=== PATIENT | female | born 1950 | race Two or more races ===

== ENCOUNTER 2022-08-11 12:20 | Inpatient (IN) | payer OTHER, MEDICAID ==
[~2022-08-11] VITALS: Ht 160 cm; Wt 66.7 kg
[2022-08-11] MEDS ORDERED: amLODIPine BESYLATE 5 MG TAB PO ONE (12:45)
[2022-08-11 13:11] LABS: Basophils # (auto) 0 10 ^3/uL (0-0.2); Basophils % (auto) 0.2 % (0.0-2.0); Eosinophils # (auto) 0.2 10 ^3/uL (0-0.8); Eosinophils % (auto) 2.6 % (0.0-7.0); Hematocrit 40.9 % (36.0-46.0); Hemoglobin 13.5 g/dL (12.2-16.2); Lymphocytes % (auto) 32.5 % (10.0-50.0); Mean Corpuscular Hemoglobin 27.4 pg (28.0-32.0); Mean Corpuscular Hgb Conc. 33.1 g/dL (32.0-36.0); Mean Corpuscular Volume 82.9 fL (80.0-100.0); Monocytes # (auto) 0.6 10 ^3/uL (0-1.3); Monocytes % (auto) 6.7 % (0.0-12.0); Neutrophils # (auto) 5.4 10 ^3/uL (1.6-8.6); Red Blood Cells 4.93 10^6/uL (4.0-5.20); Red Cell Distribution Width 15.3 % (11.8-14.3); White Blood Cell 9.3 10^3/uL (4.4-10.8)
[2022-08-11 13:36] LABS: Albumin 3.5 g/dL (3.4-5.0); BUN/Creatinine Ratio 19.7; Bilirubin, Total 0.6 mg/dL (0.2-1.0); Calcium 9.2 mg/dL (8.5-10.1); Potassium 4.9 mmol/L (3.5-5.1); Total Protein 6.8 g/dL (6.4-8.2)
[2022-08-11] MEDS ORDERED: SODIUM CHLORIDE 0.9% 1,000 ML IV ONE (18:45)
[2022-08-12] MEDS ORDERED: hydrALAZINE HCL 20 MG/ML VL IV ONE (00:45)
[2022-08-12] MEDS ORDERED: ACETAMINOPHEN 325 MG TAB PO PRN (01:00)
[2022-08-12] MEDS ORDERED: MORPHINE SULFATE INJ 2 MG/ml SYRG IV PRN (01:00)
[2022-08-12] MEDS ORDERED: ONDANSETRON HCL 4 MG/2 ML VIAL IV PRN (01:00)
[2022-08-12] MEDS ORDERED: NITROGLYCERIN 0.4 MG SL TAB SL PRN (01:00)
[2022-08-12] MEDS ORDERED: ENALAPRILAT 1.25 MG/ML-1ML VIAL IV ONE (01:00)
[2022-08-12 01:55] LABS: Urine Bacteria MOD /hpf (None Seen); Urine Blood Negative /uL (Negative); Urine Specific Gravity 1.006 (1.001-1.035); Urine WBC 98 /hpf (0 - 5); Urine WBC Clumps PRESENT /hpf (None Seen)
[2022-08-12 02:45] LABS: Cholesterol 160 mg/dL (< 200); LDL Cholesterol 79 mg/dL (< 100); Triglycerides 213 mg/dL (< 150)
[2022-08-12 02:48] LABS: HDL Cholesterol 61 mg/dL (40-59)
[2022-08-12] MEDS: cloNIDine HCL 0.1 MG TAB PO PRN ×2 (03:03→18:43)
[2022-08-12] MEDS: LISINOPRIL 10 MG TAB PO SCH (10:36)
[2022-08-12] MEDS: ATORVASTATIN 20 MG TAB PO SCH (10:36)
[2022-08-12] MEDS: PANTOPRAZOLE 40 MG TAB PO SCH (10:37)
[2022-08-12] MEDS: cefTRIAXone 1GM/50ML D5W 50 ML IV SCH (10:37)
[2022-08-12] MEDS: hydrALAZINE HCL 25 MG TAB PO SCH ×2 (10:37→23:25)
[2022-08-12] MEDS: ENOXAPARIN SOD 40 MG/0.4 ML SYRINGE SC SCH (10:51)
[2022-08-12] MEDS ORDERED: DEXTROSE (50%) 50ML SYRG IV ONE (16:45)
[2022-08-12] MEDS ORDERED: InsuLIN REG 1unit/0.01ml Soln (100units/ml) SC ONE (17:00)
[2022-08-12] MEDS ORDERED: ACCU-CHEK COMFORT CURVE STRIP VI ONE (17:00)
[2022-08-12] MEDS: LORazepam 0.5 MG TAB PO PRN (18:44)
[2022-08-13 06:25] LABS: Hematocrit 32.8 % (36.0-46.0); Hemoglobin 10.7 g/dL (12.2-16.2); Mean Corpuscular Hemoglobin 28.5 pg (28.0-32.0); Mean Corpuscular Hgb Conc. 32.5 g/dL (32.0-36.0); Mean Corpuscular Volume 87.7 fL (80.0-100.0); Red Blood Cells 3.74 10^6/uL (4.0-5.20); Red Cell Distribution Width 14.8 % (11.8-14.3); White Blood Cell 9.8 10^3/uL (4.4-10.8)
[2022-08-13 06:49] LABS: BUN/Creatinine Ratio 11.6; Calcium 9.7 mg/dL (8.5-10.1); Potassium 3.7 mmol/L (3.5-5.1)
[2022-08-13 06:50] LABS: Basophils % (manual) 0 (0.0-2.0); Blast Cells 0; Metamyelocytes % 0; Myelocytes % 0; Promyelocytes % 0; Reactive Lymphocytes 0
[2022-08-13 09:00] VITALS: BP 207/72
[2022-08-13 09:16] LABS: Band Neutrophils % (manual) 1; Eosinophils % (manual) 18 (0-7); Lymphocytes % (manual) 39 (10.0-50.0); Monocytes % (manual) 10 (0-12)
[2022-08-13] MEDS: cefTRIAXone 1GM/50ML D5W 50 ML IV SCH (09:35)
[2022-08-13] MEDS: cloNIDine HCL 0.1 MG TAB PO PRN ×2 (09:36→17:23)
[2022-08-13] MEDS: ENOXAPARIN SOD 40 MG/0.4 ML SYRINGE SC SCH (09:36)
[2022-08-13] MEDS: hydrALAZINE HCL 25 MG TAB PO SCH ×2 (09:36→21:49)
[2022-08-13] MEDS: LISINOPRIL 10 MG TAB PO SCH (09:36)
[2022-08-13] MEDS: PANTOPRAZOLE 40 MG TAB PO SCH (09:37)
[2022-08-13 13:00] VITALS: BP 167/68
[2022-08-13 14:00] VITALS: BP 143/58
[2022-08-13 17:00] VITALS: BP 163/75
[2022-08-13] MEDS ORDERED: LISINOPRIL 20 MG TAB PO ONE (19:15)
[2022-08-13 20:00] VITALS: BP 165/82
[2022-08-13] MEDS: ATORVASTATIN 20 MG TAB PO SCH (21:49)
[2022-08-13] MEDS: LORazepam 0.5 MG TAB PO PRN (21:50)
[2022-08-13 22:00] VITALS: BP 219/84
[2022-08-14] VITALS (7 sets, daily range): BP systolic 165–207; BP diastolic 71–95
[2022-08-14] MEDS: cloNIDine HCL 0.1 MG TAB PO PRN (04:07)
[2022-08-14] MEDS: cefTRIAXone 1GM/50ML D5W 50 ML IV SCH (08:36)
[2022-08-14] MEDS: hydrALAZINE HCL 25 MG TAB PO SCH ×2 (11:21→20:31)
[2022-08-14] MEDS: ENOXAPARIN SOD 40 MG/0.4 ML SYRINGE SC SCH (11:22)
[2022-08-14] MEDS: LISINOPRIL 10 MG TAB PO SCH ×3 (11:22→23:10)
[2022-08-14] MEDS ORDERED: TRIAMTERENE/HCTZ 37.5/25 MG CAP/TAB PO ONE (12:45)
[2022-08-14] MEDS: hydrALAZINE HCL 20 MG/ML VL IV PRN ×2 (13:15→20:32)
[2022-08-14] MEDS: ATORVASTATIN 20 MG TAB PO SCH (23:10)
[2022-08-14] MEDS ORDERED: MELATONIN 5 MG TAB PO ONE (23:30)
[2022-08-15] VITALS (9 sets, daily range): BP systolic 162–246; BP diastolic 53–93
[2022-08-15] MEDS: hydrALAZINE HCL 20 MG/ML VL IV PRN ×5 (03:08→20:42)
[2022-08-15] MEDS: cefTRIAXone 1GM/50ML D5W 50 ML IV SCH (09:10)
[2022-08-15] MEDS: hydrALAZINE HCL 25 MG TAB PO SCH ×2 (09:20→22:20)
[2022-08-15] MEDS: LISINOPRIL 10 MG TAB PO SCH (09:21)
[2022-08-15] MEDS: TRIAMTERENE/HCTZ 37.5/25 MG CAP/TAB PO SCH (09:21)
[2022-08-15] MEDS: ENOXAPARIN SOD 40 MG/0.4 ML SYRINGE SC SCH (09:21)
[2022-08-15] MEDS ORDERED: LACTULOSE 20Gm/30ML SOLN PO ONE (15:30)
[2022-08-15 16:10] LABS: Basophils # (auto) 0.2 10 ^3/uL (0-0.2); Basophils % (auto) 2.1 % (0.0-2.0); Eosinophils # (auto) 1.5 10 ^3/uL (0-0.8); Eosinophils % (auto) 14.9 % (0.0-7.0); Hematocrit 37.7 % (36.0-46.0); Hemoglobin 12.2 g/dL (12.2-16.2); Lymphocytes # (auto) 1.7 10 ^3/uL (0.4-5.4); Mean Corpuscular Hemoglobin 28.6 pg (28.0-32.0); Mean Corpuscular Hgb Conc. 32.4 g/dL (32.0-36.0); Mean Corpuscular Volume 88.1 fL (80.0-100.0); Monocytes # (auto) 0.5 10 ^3/uL (0-1.3); Monocytes % (auto) 4.8 % (0.0-12.0); Neutrophils # (auto) 6.2 10 ^3/uL (1.6-8.6); Neutrophils % (auto) 61.2 % (37.0-80.0); Nucleated Red Blood Cells % 0.2 %; Red Blood Cells 4.28 10^6/uL (4.0-5.20); Red Cell Distribution Width 14.7 % (11.8-14.3); White Blood Cell 10.1 10^3/uL (4.4-10.8)
[2022-08-15 16:28] LABS: BUN/Creatinine Ratio 11.7; Calcium 10.5 mg/dL (8.5-10.1); Potassium 3.9 mmol/L (3.5-5.1)
[2022-08-15] MEDS ORDERED: amLODIPine BESYLATE 5 MG TAB PO ONE (16:45)
[2022-08-15] MEDS ORDERED: PROMETHAZINE HCL 25 MG/ML 1ML IV ONE (17:00)
[2022-08-15] MEDS ORDERED: cloNIDine HCL 0.1 MG TAB PO PRN (17:00)
[2022-08-15] MEDS: LACTULOSE 20Gm/30ML SOLN PO SCH (19:43)
[2022-08-15] MEDS ORDERED: MELATONIN 5 MG TAB PO ONE (22:00)
[2022-08-15] MEDS: ATORVASTATIN 20 MG TAB PO SCH (22:18)
[2022-08-15] MEDS: LISINOPRIL 20 MG TAB PO SCH (22:20)
[2022-08-16] VITALS (9 sets, daily range): BP systolic 107–246; BP diastolic 70–91
[2022-08-16] MEDS: LACTULOSE 20Gm/30ML SOLN PO SCH ×4 (01:41→18:00)
[2022-08-16 06:32] LABS: Basophils # (auto) 0.2 10 ^3/uL (0-0.2); Basophils % (auto) 2.1 % (0.0-2.0); Eosinophils # (auto) 1.2 10 ^3/uL (0-0.8); Hematocrit 34.7 % (36.0-46.0); Hemoglobin 11.7 g/dL (12.2-16.2); Lymphocytes # (auto) 2.4 10 ^3/uL (0.4-5.4); Lymphocytes % (auto) 25.6 % (10.0-50.0); Mean Corpuscular Hemoglobin 28.9 pg (28.0-32.0); Mean Corpuscular Hgb Conc. 33.6 g/dL (32.0-36.0); Mean Corpuscular Volume 86.1 fL (80.0-100.0); Monocytes # (auto) 0.8 10 ^3/uL (0-1.3); Neutrophils # (auto) 4.8 10 ^3/uL (1.6-8.6); Neutrophils % (auto) 51.3 % (37.0-80.0); Red Blood Cells 4.03 10^6/uL (4.0-5.20); Red Cell Distribution Width 14.6 % (11.8-14.3); White Blood Cell 9.5 10^3/uL (4.4-10.8)
[2022-08-16] MEDS: hydrALAZINE HCL 20 MG/ML VL IV PRN (06:39)
[2022-08-16 06:49] LABS: Potassium 3.7 mmol/L (3.5-5.1)
[2022-08-16 06:54] LABS: Albumin 2.6 g/dL (3.4-5.0); BUN/Creatinine Ratio 10.9; Calcium 10.4 mg/dL (8.5-10.1)
[2022-08-16 06:56] LABS: Bilirubin, Total 0.3 mg/dL (0.2-1.0); Total Protein 5.9 g/dL (6.4-8.2)
[2022-08-16] MEDS: cefTRIAXone 1GM/50ML D5W 50 ML IV SCH (09:39)
[2022-08-16] MEDS: ENOXAPARIN SOD 40 MG/0.4 ML SYRINGE SC SCH (09:45)
[2022-08-16] MEDS: LISINOPRIL 20 MG TAB PO SCH (09:46)
[2022-08-16] MEDS: hydrALAZINE HCL 25 MG TAB PO SCH ×2 (09:46→21:52)
[2022-08-16] MEDS: TRIAMTERENE/HCTZ 37.5/25 MG CAP/TAB PO SCH (09:47)
[2022-08-16] MEDS ORDERED: OMNIPAQUE ORAL SOLN 500ml 12mg/ml PO ONE (10:25)
[2022-08-16] MEDS ORDERED: levoFLOXacin 500MG 100 ML IV ONE (13:30)
[2022-08-16] MEDS ORDERED: ENOXAPARIN SOD 40 MG/0.4 ML SYRINGE SC ONE (13:30)
[2022-08-16 15:18] LABS: Urine Bacteria MANY /hpf (None Seen); Urine Blood 1+ /uL (Negative); Urine Mucus FEW (None Seen); Urine Specific Gravity 1.014 (1.001-1.035); Urine WBC 2128 /hpf (0 - 5); Urine WBC Clumps PRESENT /hpf (None Seen)
[2022-08-16 16:22] LABS: Protein, Urine 666.7 mg/dL (0.0-11.9)
[2022-08-16] MEDS: ATORVASTATIN 20 MG TAB PO SCH (21:52)
[2022-08-16] MEDS ORDERED: cloNIDine HCL 0.1 MG TAB PO SCH (22:00)
[2022-08-16] MEDS ORDERED: NITROGLYCERIN 50MG/250ML 250 ML IV SCH (23:00)
[2022-08-17] VITALS (13 sets, daily range): BP systolic 131–246; BP diastolic 53–91
[2022-08-17] MEDS: hydrALAZINE HCL 25 MG TAB PO SCH ×4 (00:06→18:35)
[2022-08-17] MEDS: cloNIDine HCL 0.1 MG TAB PO PRN (00:07)
[2022-08-17] MEDS: hydrALAZINE HCL 20 MG/ML VL IV PRN (01:24)
[2022-08-17] MEDS: cloNIDine HCL 0.1 MG TAB PO SCH ×4 (06:00→22:09)
[2022-08-17 07:12] LABS: Uric Acid 5.4 mg/dL (2.6-6.0)
[2022-08-17] MEDS: cefTRIAXone 1GM/50ML D5W 50 ML IV SCH (09:00)
[2022-08-17] MEDS ORDERED: levoFLOXacin 250MG 50 ML IV SCH (10:00)
[2022-08-17] MEDS ORDERED: levoFLOXacin 500MG 100 ML IV SCH (10:00)
[2022-08-17] MEDS: TRIAMTERENE/HCTZ 37.5/25 MG CAP/TAB PO SCH (10:23)
[2022-08-17] MEDS: ERGOCALCIFEROL 50,000 UNIT(1.25MG) CAP PO SCH (14:30)
[2022-08-17] MEDS ORDERED: ALLOPURINOL 100 MG TAB PO ONE (17:00)
[2022-08-17] MEDS ORDERED: ALLOPURINOL 100 MG PO ONE (18:00)
[2022-08-17] MEDS: ATORVASTATIN 20 MG TAB PO SCH (22:10)
[2022-08-18] VITALS (10 sets, daily range): BP systolic 124–246; BP diastolic 53–91
[2022-08-18] MEDS: cloNIDine HCL 0.1 MG TAB PO SCH ×3 (05:54→22:59)
[2022-08-18] MEDS: hydrALAZINE HCL 25 MG TAB PO SCH ×4 (05:55→17:31)
[2022-08-18 06:59] LABS: BUN/Creatinine Ratio 9.2; Calcium 9.8 mg/dL (8.5-10.1); Magnesium 2.1 mg/dL (1.6-2.6); Potassium 4.2 mmol/L (3.5-5.1)
[2022-08-18] MEDS ORDERED: ALLO100T PO (09:12)
[2022-08-18] MEDS ORDERED: ATEN100T PO (09:12)
[2022-08-18] MEDS ORDERED: HYDR50TA15 PO (09:12)
[2022-08-18] MEDS ORDERED: LEVO125T7 PO (09:12)
[2022-08-18] MEDS ORDERED: INSUINJ2 SC (09:12)
[2022-08-18] MEDS ORDERED: OMEP-260 PO (09:12)
[2022-08-18] MEDS ORDERED: LOSA25TA38 PO (09:12)
[2022-08-18] MEDS ORDERED: ATO40T PO (09:12)
[2022-08-18] MEDS: cefTRIAXone 1GM/50ML D5W 50 ML IV SCH (09:20)
[2022-08-18] MEDS: ALLOPURINOL 100MG TABLET PO SCH (10:00)
[2022-08-18] MEDS: TRIAMTERENE/HCTZ 37.5/25 MG CAP/TAB PO SCH (10:00)
[2022-08-18] MEDS ORDERED: ALLOPURINOL 100 MG TAB PO SCH (10:00)
[2022-08-18] MEDS: ATORVASTATIN 20 MG TAB PO SCH (22:57)
[2022-08-19] VITALS (7 sets, daily range): BP systolic 139–193; BP diastolic 53–87
[2022-08-19] MEDS: hydrALAZINE HCL 25 MG TAB PO SCH ×5 (00:32→23:54)
[2022-08-19] MEDS: hydrALAZINE HCL 20 MG/ML VL IV PRN (02:17)
[2022-08-19] MEDS: cloNIDine HCL 0.1 MG TAB PO SCH (06:00)
[2022-08-19] MEDS ORDERED: DEXTROSE (50%) 50ML SYRG IV PRN (08:15)
[2022-08-19] MEDS: ACCU-CHEK COMFORT CURVE STRIP VI SCH ×3 (08:40→22:04)
[2022-08-19] MEDS: InsuLIN REG 1unit/0.01ml Soln (100units/ml) SC SCH ×3 (08:44→22:03)
[2022-08-19] MEDS: TRIAMTERENE/HCTZ 37.5/25 MG CAP/TAB PO SCH (10:00)
[2022-08-19] MEDS ORDERED: ERTAPENEM SOD INJ 1 GM in SODIUM CHL 0.9% 50 ML IV SCH (10:00)
[2022-08-19] MEDS: ERTAPENEM SOD INJ 0.5 GM in SODIUM CHL 0.9% 50 ML IV SCH (10:20)
[2022-08-19] MEDS: ALLOPURINOL 100MG TABLET PO SCH (10:41)
[2022-08-19] MEDS ORDERED: NIFEdipine 10 MG CAP PO ONE (12:00)
[2022-08-19] MEDS ORDERED: NIFEdipine ER 30 MG TAB PO ONE (13:15)
[2022-08-19 14:30] LABS: Calcium 9.8 mg/dL (8.5-10.1); Potassium 3.7 mmol/L (3.5-5.1)
[2022-08-19] MEDS: ATORVASTATIN 20 MG TAB PO SCH (21:43)
[2022-08-20] MEDS ORDERED: TEMAZEPAM 15 MG CAP PO ONE (01:00)
[2022-08-20 05:00] VITALS: BP 157/62
[2022-08-20] MEDS: hydrALAZINE HCL 25 MG TAB PO SCH ×4 (05:40→23:30)
[2022-08-20 06:30] LABS: BUN/Creatinine Ratio 13.4; Calcium 10.5 mg/dL (8.5-10.1)
[2022-08-20] MEDS: InsuLIN REG 1unit/0.01ml Soln (100units/ml) SC SCH ×4 (06:56→21:18)
[2022-08-20] MEDS: ACCU-CHEK COMFORT CURVE STRIP VI SCH ×4 (06:56→21:15)
[2022-08-20 09:04] VITALS: BP 137/62
[2022-08-20] MEDS: ERTAPENEM SOD INJ 0.5 GM in SODIUM CHL 0.9% 50 ML IV SCH (09:36)
[2022-08-20] MEDS: NIFEdipine ER 30 MG TAB PO SCH (09:36)
[2022-08-20] MEDS: TRIAMTERENE/HCTZ 37.5/25 MG CAP/TAB PO SCH (09:36)
[2022-08-20 13:00] VITALS: BP 130/76
[2022-08-20] MEDS ORDERED: ENOXAPARIN SOD 30 MG/0.3 ML SYRINGE SC ONE (15:00)
[2022-08-20 17:14] VITALS: BP 129/65
[2022-08-20] MEDS: ONDANSETRON HCL 4 MG/2 ML VIAL IV PRN (18:03)
[2022-08-20] MEDS: PANTOPRAZOLE 40 MG TAB PO SCH (21:13)
[2022-08-20] MEDS: ATORVASTATIN 20 MG TAB PO SCH (21:13)
[2022-08-20] MEDS: cloNIDine HCL 0.1 MG TAB PO PRN (21:20)
[2022-08-20 22:00] VITALS: BP 168/66
[2022-08-21] MEDS: ONDANSETRON HCL 4 MG/2 ML VIAL IV PRN ×2 (04:22→11:28)
[2022-08-21 05:00] VITALS: BP 133/63
[2022-08-21] MEDS: hydrALAZINE HCL 25 MG TAB PO SCH ×4 (06:00→18:22)
[2022-08-21] MEDS: ACCU-CHEK COMFORT CURVE STRIP VI SCH ×4 (06:03→21:24)
[2022-08-21 06:07] LABS: Basophils # (auto) 0.2 10 ^3/uL (0-0.2); Basophils % (auto) 1.5 % (0.0-2.0); Eosinophils # (auto) 0.8 10 ^3/uL (0-0.8); Eosinophils % (auto) 7.7 % (0.0-7.0); Hematocrit 34.8 % (36.0-46.0); Hemoglobin 11.5 g/dL (12.2-16.2); Lymphocytes # (auto) 2.5 10 ^3/uL (0.4-5.4); Lymphocytes % (auto) 23.2 % (10.0-50.0); Mean Corpuscular Hemoglobin 28.7 pg (28.0-32.0); Mean Corpuscular Hgb Conc. 33.1 g/dL (32.0-36.0); Mean Corpuscular Volume 86.5 fL (80.0-100.0); Monocytes # (auto) 0.8 10 ^3/uL (0-1.3); Monocytes % (auto) 7.3 % (0.0-12.0); Neutrophils # (auto) 6.5 10 ^3/uL (1.6-8.6); Neutrophils % (auto) 60.3 % (37.0-80.0); Nucleated Red Blood Cells % 0.2 %; Red Blood Cells 4.02 10^6/uL (4.0-5.20); Red Cell Distribution Width 14.5 % (11.8-14.3); White Blood Cell 10.7 10^3/uL (4.4-10.8)
[2022-08-21] MEDS: InsuLIN REG 1unit/0.01ml Soln (100units/ml) SC SCH ×4 (06:07→21:44)
[2022-08-21 06:36] LABS: Calcium 10.4 mg/dL (8.5-10.1); Potassium 4.2 mmol/L (3.5-5.1)
[2022-08-21 06:38] LABS: BUN/Creatinine Ratio 11.8
[2022-08-21] MEDS: LACTULOSE 20Gm/30ML SOLN PO ONE ×2 (07:45→10:21)
[2022-08-21 09:00] VITALS: BP 117/48
[2022-08-21] MEDS: NIFEdipine ER 30 MG TAB PO SCH (10:00)
[2022-08-21] MEDS: TRIAMTERENE/HCTZ 37.5/25 MG CAP/TAB PO SCH (10:00)
[2022-08-21] MEDS: PANTOPRAZOLE 40 MG TAB PO SCH ×3 (10:00→21:23)
[2022-08-21] MEDS: ENOXAPARIN SOD 30 MG/0.3 ML SYRINGE SC SCH (10:20)
[2022-08-21] MEDS: ERTAPENEM SOD INJ 0.5 GM in SODIUM CHL 0.9% 50 ML IV SCH (11:28)
[2022-08-21 13:00] VITALS: BP 139/46
[2022-08-21 17:00] VITALS: BP 148/64
[2022-08-21] MEDS: hydrALAZINE HCL 20 MG/ML VL IV PRN (21:24)
[2022-08-21] MEDS: ATORVASTATIN 20 MG TAB PO SCH (21:24)
[2022-08-21 22:00] VITALS: BP 159/63
[2022-08-22] MEDS: hydrALAZINE HCL 25 MG TAB PO SCH ×5 (00:21→23:23)
[2022-08-22] MEDS ORDERED: MELATONIN 5 MG TAB PO ONE (00:30)
[2022-08-22 05:00] VITALS: BP 145/52
[2022-08-22] MEDS: ACCU-CHEK COMFORT CURVE STRIP VI SCH ×4 (05:36→21:40)
[2022-08-22] MEDS: InsuLIN REG 1unit/0.01ml Soln (100units/ml) SC SCH ×4 (06:28→21:40)
[2022-08-22 08:55] VITALS: BP 151/67
[2022-08-22] MEDS: ERTAPENEM SOD INJ 0.5 GM in SODIUM CHL 0.9% 50 ML IV SCH (10:54)
[2022-08-22] MEDS: NIFEdipine ER 30 MG TAB PO SCH (10:55)
[2022-08-22] MEDS: TRIAMTERENE/HCTZ 37.5/25 MG CAP/TAB PO SCH (10:55)
[2022-08-22] MEDS: ENOXAPARIN SOD 30 MG/0.3 ML SYRINGE SC SCH (10:56)
[2022-08-22] MEDS: PANTOPRAZOLE 40 MG TAB PO SCH ×2 (10:56→21:38)
[2022-08-22 13:00] VITALS: BP 157/58
[2022-08-22 14:07] LABS: Potassium 4.3 mmol/L (3.5-5.1)
[2022-08-22 14:08] LABS: BUN/Creatinine Ratio 10.6; Calcium 10.3 mg/dL (8.5-10.1)
[2022-08-22] MEDS ORDERED: POLYETHYLENE GLYCOL 17 GM PWDR PO ONE (15:45)
[2022-08-22] MEDS ORDERED: SENNA 8.6 MG TAB PO ONE (15:45)
[2022-08-22] MEDS ORDERED: POLYETHYLENE GLYCOL 17 GM PWDR PO PRN (15:45)
[2022-08-22] MEDS ORDERED: SENNA 8.6 MG TAB PO PRN (15:45)
[2022-08-22 17:00] VITALS: BP 154/61
[2022-08-22] MEDS: ATORVASTATIN 20 MG TAB PO SCH (21:37)
[2022-08-22] MEDS: SENNA 8.6 MG TAB PO SCH (21:39)
[2022-08-22] MEDS: cloNIDine HCL 0.1 MG TAB PO PRN (21:39)
[2022-08-22] MEDS: ONDANSETRON HCL 4 MG/2 ML VIAL IV PRN (21:45)
[2022-08-22 22:00] VITALS: BP 174/79
[2022-08-23 05:19] VITALS: BP 147/62
[2022-08-23] MEDS: hydrALAZINE HCL 25 MG TAB PO SCH ×4 (06:01→23:37)
[2022-08-23 06:27] LABS: BUN/Creatinine Ratio 11.4; Calcium 10.1 mg/dL (8.5-10.1); Potassium 4.1 mmol/L (3.5-5.1)
[2022-08-23] MEDS: InsuLIN REG 1unit/0.01ml Soln (100units/ml) SC SCH ×4 (06:27→22:39)
[2022-08-23] MEDS: ACCU-CHEK COMFORT CURVE STRIP VI SCH ×4 (06:28→22:00)
[2022-08-23 09:00] VITALS: BP 142/61
[2022-08-23] MEDS: ERTAPENEM SOD INJ 0.5 GM in SODIUM CHL 0.9% 50 ML IV SCH (09:45)
[2022-08-23] MEDS: PANTOPRAZOLE 40 MG TAB PO SCH ×2 (09:46→21:51)
[2022-08-23] MEDS: NIFEdipine ER 30 MG TAB PO SCH (09:46)
[2022-08-23] MEDS: ENOXAPARIN SOD 30 MG/0.3 ML SYRINGE SC SCH (09:46)
[2022-08-23] MEDS: POLYETHYLENE GLYCOL 17 GM PWDR PO SCH (09:46)
[2022-08-23] MEDS: ONDANSETRON HCL 4 MG/2 ML VIAL IV PRN ×2 (09:56→20:28)
[2022-08-23 13:00] VITALS: BP 154/67
[2022-08-23 16:35] VITALS: BP 154/76
[2022-08-23] MEDS: SENNA 8.6 MG TAB PO SCH (21:50)
[2022-08-23] MEDS: ATORVASTATIN 20 MG TAB PO SCH (21:51)
[2022-08-23] MEDS: cloNIDine HCL 0.1 MG TAB PO PRN (21:57)
[2022-08-23 23:09] VITALS: BP 165/79
[2022-08-24] MEDS: hydrALAZINE HCL 25 MG TAB PO SCH ×3 (05:48→17:51)
[2022-08-24] MEDS: InsuLIN REG 1unit/0.01ml Soln (100units/ml) SC SCH ×4 (06:07→21:29)
[2022-08-24] MEDS: ACCU-CHEK COMFORT CURVE STRIP VI SCH ×4 (06:07→21:21)
[2022-08-24 07:20] LABS: BUN/Creatinine Ratio 11.3; Calcium 9.9 mg/dL (8.5-10.1); Potassium 3.9 mmol/L (3.5-5.1)
[2022-08-24 09:00] VITALS: BP 137/61
[2022-08-24] MEDS: NIFEdipine ER 30 MG TAB PO SCH (10:08)
[2022-08-24] MEDS: POLYETHYLENE GLYCOL 17 GM PWDR PO SCH (10:08)
[2022-08-24] MEDS: PANTOPRAZOLE 40 MG TAB PO SCH ×2 (10:08→21:20)
[2022-08-24] MEDS: ENOXAPARIN SOD 30 MG/0.3 ML SYRINGE SC SCH (10:08)
[2022-08-24] MEDS: ERTAPENEM SOD INJ 0.5 GM in SODIUM CHL 0.9% 50 ML IV SCH (10:22)
[2022-08-24 13:00] VITALS: BP 142/62
[2022-08-24] MEDS: ERGOCALCIFEROL 50,000 UNIT(1.25MG) CAP PO SCH (14:46)
[2022-08-24 16:55] VITALS: BP 140/68
[2022-08-24] MEDS: ATORVASTATIN 20 MG TAB PO SCH (21:20)
[2022-08-24] MEDS: SENNA 8.6 MG TAB PO SCH (21:21)
[2022-08-24 22:00] VITALS: BP 153/68
[2022-08-25] MEDS: hydrALAZINE HCL 25 MG TAB PO SCH ×4 (00:02→18:05)
[2022-08-25 05:00] VITALS: BP 141/68
[2022-08-25] MEDS: ACCU-CHEK COMFORT CURVE STRIP VI SCH ×4 (06:27→21:56)
[2022-08-25] MEDS: InsuLIN REG 1unit/0.01ml Soln (100units/ml) SC SCH ×4 (06:28→22:00)
[2022-08-25 06:30] LABS: BUN/Creatinine Ratio 11.5; Calcium 10.2 mg/dL (8.5-10.1); Potassium 3.7 mmol/L (3.5-5.1)
[2022-08-25 08:35] VITALS: BP 140/68
[2022-08-25] MEDS: PANTOPRAZOLE 40 MG TAB PO SCH ×2 (10:36→21:45)
[2022-08-25] MEDS: ENOXAPARIN SOD 30 MG/0.3 ML SYRINGE SC SCH (10:36)
[2022-08-25] MEDS: POLYETHYLENE GLYCOL 17 GM PWDR PO SCH (10:37)
[2022-08-25] MEDS: NIFEdipine ER 30 MG TAB PO SCH (10:37)
[2022-08-25] MEDS: ERTAPENEM SOD INJ 0.5 GM in SODIUM CHL 0.9% 50 ML IV SCH (10:42)
[2022-08-25 12:46] VITALS: BP 145/82
[2022-08-25 16:27] VITALS: BP 156/79
[2022-08-25] MEDS: hydrALAZINE HCL 20 MG/ML VL IV PRN (16:39)
[2022-08-25 17:40] VITALS: BP 146/66
[2022-08-25] MEDS: ATORVASTATIN 20 MG TAB PO SCH (21:46)
[2022-08-25] MEDS: SENNA 8.6 MG TAB PO SCH (21:46)
[2022-08-25 23:54] VITALS: BP 146/75
[2022-08-26] VITALS (7 sets, daily range): BP systolic 135–165; BP diastolic 66–86
[2022-08-26] MEDS: hydrALAZINE HCL 25 MG TAB PO SCH ×4 (00:27→18:26)
[2022-08-26] MEDS: ACCU-CHEK COMFORT CURVE STRIP VI SCH ×4 (06:35→21:30)
[2022-08-26] MEDS: InsuLIN REG 1unit/0.01ml Soln (100units/ml) SC SCH ×4 (06:36→22:32)
[2022-08-26 06:56] LABS: Anion Gap 8 (5-15); Carbon Dioxide 25 mmol/L (21-32); Chloride 100 mmol/L (98-107); Sodium 133 mmol/L (136-145)
[2022-08-26 06:57] LABS: BUN/Creatinine Ratio 13.3; Blood Urea Nitrogen 34 mg/dL (7-18); Calcium 10.4 mg/dL (8.5-10.1); GFR African American 24 mL/min; GFR Non-African American 20 mL/min; Glucose 143 mg/dL (74-106); Potassium 4.4 mmol/L (3.5-5.1)
[2022-08-26] MEDS: PANTOPRAZOLE 40 MG TAB PO SCH ×2 (10:19→21:30)
[2022-08-26] MEDS: ERTAPENEM SOD INJ 0.5 GM in SODIUM CHL 0.9% 50 ML IV SCH (10:19)
[2022-08-26] MEDS: ENOXAPARIN SOD 30 MG/0.3 ML SYRINGE SC SCH (10:19)
[2022-08-26] MEDS: POLYETHYLENE GLYCOL 17 GM PWDR PO SCH (10:19)
[2022-08-26] MEDS: NIFEdipine ER 30 MG TAB PO SCH (10:20)
[2022-08-26] MEDS ORDERED: ERGO1CAP23 PO (11:27)
[2022-08-26] MEDS ORDERED: NIFE1TAB31 PO (11:27)
[2022-08-26] MEDS: hydrALAZINE HCL 20 MG/ML VL IV PRN (20:28)
[2022-08-26 20:36] LABS: Basophils # (auto) 0.1 10 ^3/uL (0-0.2); Basophils % (auto) 2.2 % (0.0-2.0); Eosinophils # (auto) 0.7 10 ^3/uL (0-0.8); Eosinophils % (auto) 10.3 % (0.0-7.0); Hematocrit 39.4 % (36.0-46.0); Hemoglobin 12.7 g/dL (12.2-16.2); Lymphocytes # (auto) 2.5 10 ^3/uL (0.4-5.4); Lymphocytes % (auto) 37.9 % (10.0-50.0); Mean Corpuscular Hemoglobin 27.9 pg (28.0-32.0); Mean Corpuscular Hgb Conc. 32.3 g/dL (32.0-36.0); Mean Corpuscular Volume 86.3 fL (80.0-100.0); Monocytes # (auto) 0.4 10 ^3/uL (0-1.3); Monocytes % (auto) 5.8 % (0.0-12.0); Neutrophils # (auto) 2.9 10 ^3/uL (1.6-8.6); Neutrophils % (auto) 43.8 % (37.0-80.0); Nucleated Red Blood Cells % 0.3 %; Red Blood Cells 4.57 10^6/uL (4.0-5.20); Red Cell Distribution Width 14.4 % (11.8-14.3); White Blood Cell 6.6 10^3/uL (4.4-10.8)
[2022-08-26] MEDS: ATORVASTATIN 20 MG TAB PO SCH (21:30)
[2022-08-26] MEDS: SENNA 8.6 MG TAB PO SCH (21:30)
[2022-08-27] MEDS: hydrALAZINE HCL 25 MG TAB PO SCH ×5 (00:15→23:59)
[2022-08-27] MEDS: cloNIDine HCL 0.1 MG TAB PO PRN ×2 (02:00→14:00)
[2022-08-27 05:00] VITALS: BP 147/88
[2022-08-27] MEDS: ACCU-CHEK COMFORT CURVE STRIP VI SCH ×4 (06:16→22:00)
[2022-08-27] MEDS: InsuLIN REG 1unit/0.01ml Soln (100units/ml) SC SCH ×4 (07:00→22:00)
[2022-08-27 07:04] LABS: Potassium 4.3 mmol/L (3.5-5.1)
[2022-08-27 07:15] LABS: BUN/Creatinine Ratio 11.6
[2022-08-27 09:00] VITALS: BP 158/65
[2022-08-27] MEDS: POLYETHYLENE GLYCOL 17 GM PWDR PO SCH (09:53)
[2022-08-27] MEDS: ENOXAPARIN SOD 30 MG/0.3 ML SYRINGE SC SCH (09:54)
[2022-08-27] MEDS: NIFEdipine ER 30 MG TAB PO SCH (09:54)
[2022-08-27] MEDS: PANTOPRAZOLE 40 MG TAB PO SCH ×2 (09:55→22:18)
[2022-08-27] MEDS: ERTAPENEM SOD INJ 0.5 GM in SODIUM CHL 0.9% 50 ML IV SCH (09:55)
[2022-08-27 13:00] VITALS: BP 168/80
[2022-08-27 17:00] VITALS: BP 131/66
[2022-08-27 22:00] VITALS: BP 120/64
[2022-08-27] MEDS: ATORVASTATIN 20 MG TAB PO SCH (22:18)
[2022-08-27] MEDS: SENNA 8.6 MG TAB PO SCH (22:18)
[2022-08-28 05:00] VITALS: BP 118/57
[2022-08-28] MEDS: hydrALAZINE HCL 25 MG TAB PO SCH ×4 (06:00→23:59)
[2022-08-28] MEDS: ACCU-CHEK COMFORT CURVE STRIP VI SCH ×4 (06:32→21:42)
[2022-08-28] MEDS: InsuLIN REG 1unit/0.01ml Soln (100units/ml) SC SCH ×4 (06:32→21:54)
[2022-08-28 07:06] LABS: BUN/Creatinine Ratio 12.2; Calcium 9.9 mg/dL (8.5-10.1); Potassium 4.3 mmol/L (3.5-5.1)
[2022-08-28 08:05] VITALS: BP 177/78
[2022-08-28] MEDS: ONDANSETRON HCL 4 MG/2 ML VIAL IV PRN ×2 (08:49→13:16)
[2022-08-28 09:00] VITALS: BP 177/78
[2022-08-28] MEDS: POLYETHYLENE GLYCOL 17 GM PWDR PO SCH (10:10)
[2022-08-28] MEDS: ENOXAPARIN SOD 30 MG/0.3 ML SYRINGE SC SCH (10:11)
[2022-08-28] MEDS: NIFEdipine ER 30 MG TAB PO SCH (10:11)
[2022-08-28] MEDS: PANTOPRAZOLE 40 MG TAB PO SCH ×2 (10:11→21:40)
[2022-08-28] MEDS: ERTAPENEM SOD INJ 0.5 GM in SODIUM CHL 0.9% 50 ML IV SCH (10:14)
[2022-08-28] MEDS ORDERED: FUROSEMIDE 20 MG/2 ML VIAL IV ONE (11:30)
[2022-08-28 13:00] VITALS: BP 178/75
[2022-08-28] MEDS: IPRATROPIUM BROM 0.5 MG/2.5ML INH SOL NEB SCH ×2 (13:27→19:06)
[2022-08-28] MEDS: ALBUTEROL SULF 2.5 MG/0.5ML(0.5%) NEB SOLN NEB SCH ×2 (13:27→19:06)
[2022-08-28] MEDS: ACETYLCYSTEINE 10 %(100MG/ML) SOL 4ML NEB SCH ×2 (13:28→19:06)
[2022-08-28 14:15] VITALS: BP 181/82
[2022-08-28] MEDS: ATORVASTATIN 20 MG TAB PO SCH (21:41)
[2022-08-28] MEDS: SENNA 8.6 MG TAB PO SCH (21:41)
[2022-08-28 22:00] VITALS: BP 144/60
[2022-08-29] VITALS (7 sets, daily range): BP systolic 134–151; BP diastolic 57–73
[2022-08-29] MEDS: IPRATROPIUM BROM 0.5 MG/2.5ML INH SOL NEB SCH ×4 (00:20→19:29)
[2022-08-29] MEDS: ALBUTEROL SULF 2.5 MG/0.5ML(0.5%) NEB SOLN NEB SCH ×4 (00:20→19:29)
[2022-08-29] MEDS: hydrALAZINE HCL 25 MG TAB PO SCH ×3 (06:35→18:31)
[2022-08-29] MEDS: ACCU-CHEK COMFORT CURVE STRIP VI SCH ×4 (06:35→22:00)
[2022-08-29] MEDS: InsuLIN REG 1unit/0.01ml Soln (100units/ml) SC SCH ×4 (06:35→22:00)
[2022-08-29 06:44] LABS: Hemoglobin 11.2 g/dL (12.2-16.2); Red Cell Distribution Width 14.4 % (11.8-14.3)
[2022-08-29 06:47] LABS: Mean Corpuscular Hemoglobin 27.9 pg (28.0-32.0); Mean Corpuscular Hgb Conc. 32.9 g/dL (32.0-36.0); Mean Corpuscular Volume 84.9 fL (80.0-100.0); White Blood Cell 6.4 10^3/uL (4.4-10.8)
[2022-08-29 07:04] LABS: Calcium 10.2 mg/dL (8.5-10.1); Potassium 4.3 mmol/L (3.5-5.1)
[2022-08-29 07:06] LABS: BUN/Creatinine Ratio 12.6; Band Neutrophils % (manual) 0; Basophils % (manual) 0 (0.0-2.0); Blast Cells 0; Metamyelocytes % 0; Myelocytes % 0; Promyelocytes % 0; Reactive Lymphocytes 0
[2022-08-29] MEDS: ACETYLCYSTEINE 10 %(100MG/ML) SOL 4ML NEB SCH ×3 (07:15→19:29)
[2022-08-29 08:38] LABS: Eosinophils % (manual) 16 (0-7); Lymphocytes % (manual) 40 (10.0-50.0); Monocytes % (manual) 8 (0-12)
[2022-08-29] MEDS ORDERED: DOCUSATE SOD 100 MG CAP PO PRN (10:00)
[2022-08-29] MEDS ORDERED: POLYETHYLENE GLYCOL 17 GM PWDR PO SCH (10:00)
[2022-08-29] MEDS: ERTAPENEM SOD INJ 0.5 GM in SODIUM CHL 0.9% 50 ML IV SCH (11:54)
[2022-08-29] MEDS: NIFEdipine ER 30 MG TAB PO SCH (12:03)
[2022-08-29] MEDS: PANTOPRAZOLE 40 MG TAB PO SCH ×2 (12:03→22:00)
[2022-08-29] MEDS: ENOXAPARIN SOD 30 MG/0.3 ML SYRINGE SC SCH (12:04)
[2022-08-29] MEDS: POLYETHYLENE GLYCOL 17 GM PWDR PO SCH ×2 (12:08→22:00)
[2022-08-29] MEDS: SENNA 8.6 MG TAB PO SCH (22:00)
[2022-08-30] MEDS: ALBUTEROL SULF 2.5 MG/0.5ML(0.5%) NEB SOLN NEB SCH ×4 (00:52→18:45)
[2022-08-30] MEDS: IPRATROPIUM BROM 0.5 MG/2.5ML INH SOL NEB SCH ×4 (00:52→18:45)
[2022-08-30] MEDS: ATORVASTATIN 20 MG TAB PO SCH ×2 (00:58→23:08)
[2022-08-30 05:00] VITALS: BP 133/64
[2022-08-30] MEDS: ACCU-CHEK COMFORT CURVE STRIP VI SCH ×4 (05:47→22:00)
[2022-08-30] MEDS: InsuLIN REG 1unit/0.01ml Soln (100units/ml) SC SCH ×4 (05:48→22:58)
[2022-08-30] MEDS: hydrALAZINE HCL 25 MG TAB PO SCH ×5 (05:56→23:10)
[2022-08-30 07:37] LABS: Potassium 4.1 mmol/L (3.5-5.1)
[2022-08-30 07:38] LABS: BUN/Creatinine Ratio 11.8
[2022-08-30 08:00] VITALS: BP 160/80
[2022-08-30] MEDS: ACETYLCYSTEINE 10 %(100MG/ML) SOL 4ML NEB SCH ×3 (08:19→18:45)
[2022-08-30 09:00] VITALS: BP 149/65
[2022-08-30] MEDS: POLYETHYLENE GLYCOL 17 GM PWDR PO SCH ×2 (10:00→22:00)
[2022-08-30] MEDS: PANTOPRAZOLE 40 MG TAB PO SCH ×2 (10:00→23:08)
[2022-08-30] MEDS: NIFEdipine ER 30 MG TAB PO SCH (11:36)
[2022-08-30] MEDS: ERTAPENEM SOD INJ 0.5 GM in SODIUM CHL 0.9% 50 ML IV SCH (11:40)
[2022-08-30] MEDS: ENOXAPARIN SOD 30 MG/0.3 ML SYRINGE SC SCH (11:45)
[2022-08-30 13:00] VITALS: BP 160/80
[2022-08-30 17:00] VITALS: BP 116/68
[2022-08-30] MEDS: SENNA 8.6 MG TAB PO SCH (22:00)
[2022-08-30 23:28] VITALS: BP 140/58
[2022-08-31] MEDS: IPRATROPIUM BROM 0.5 MG/2.5ML INH SOL NEB SCH ×2 (00:12→05:45)
[2022-08-31] MEDS: ALBUTEROL SULF 2.5 MG/0.5ML(0.5%) NEB SOLN NEB SCH ×2 (00:12→05:45)
[2022-08-31] MEDS: ACETYLCYSTEINE 10 %(100MG/ML) SOL 4ML NEB SCH (05:45)
[2022-08-31 05:57] VITALS: BP 122/56
[2022-08-31] MEDS: hydrALAZINE HCL 25 MG TAB PO SCH ×3 (06:00→13:50)
[2022-08-31] MEDS: InsuLIN REG 1unit/0.01ml Soln (100units/ml) SC SCH ×3 (06:17→18:09)
[2022-08-31] MEDS: ACCU-CHEK COMFORT CURVE STRIP VI SCH ×3 (06:17→18:43)
[2022-08-31 09:00] VITALS: BP 123/54
[2022-08-31 09:03] LABS: Anion Gap 8 (5-15); Blood Urea Nitrogen 29 mg/dL (7-18); Calcium 9.7 mg/dL (8.5-10.1); Carbon Dioxide 25 mmol/L (21-32); Chloride 95 mmol/L (98-107); Glucose 111 mg/dL (74-106); Potassium 3.6 mmol/L (3.5-5.1); Sodium 128 mmol/L (136-145)
[2022-08-31 09:06] LABS: BUN/Creatinine Ratio 11.6; GFR African American 24 mL/min; GFR Non-African American 20 mL/min
[2022-08-31] MEDS: PANTOPRAZOLE 40 MG TAB PO SCH (10:17)
[2022-08-31] MEDS: NIFEdipine ER 30 MG TAB PO SCH (10:21)
[2022-08-31] MEDS: ENOXAPARIN SOD 30 MG/0.3 ML SYRINGE SC SCH (10:22)
[2022-08-31] MEDS: ERTAPENEM SOD INJ 0.5 GM in SODIUM CHL 0.9% 50 ML IV SCH (10:28)
[2022-08-31] MEDS: POLYETHYLENE GLYCOL 17 GM PWDR PO SCH (10:43)
[2022-08-31 12:53] VITALS: BP 141/63
[2022-08-31 13:00] VITALS: BP 146/68
[2022-08-31] MEDS ORDERED: FUROSEMIDE 40 MG/4 ML VIAL IV ONE (13:00)
[2022-08-31] MEDS: ERGOCALCIFEROL 50,000 UNIT(1.25MG) CAP PO SCH (13:58)
[2022-08-31] MEDS ORDERED: IPRATROPIUM BROM 0.5 MG/2.5ML INH SOL NEB SCH (14:00)
[2022-08-31] MEDS ORDERED: ALBUTEROL SULF 2.5 MG/0.5ML(0.5%) NEB SOLN NEB SCH (14:00)
[2022-08-31 16:47] VITALS: BP 157/69
[2022-08-31] MEDS: hydrALAZINE HCL 20 MG/ML VL IV PRN (18:04)
== END 2022-08-31 20:45 | DRG 304 ==
LOC: EDBD 12:20 → ER 12:20 → TELE 08-12 01:03 → TELE-WESTW 08-13 09:05 → WEST WING 08-28 10:42
PROVIDERS: ADMIT Nurse Practitioner; ATTEND Internal Medicine
PROC: 05HB33Z Insertion of Infusion Device into Right Basilic Vein, Percutaneous Approach (ICD-10-PCS; principal; 2022-08-17)
PROC: B54MZZA Ultrasonography of Right Upper Extremity Veins, Guidance (ICD-10-PCS; 2022-08-17)
DX: I16.0 Hypertensive urgency (principal); J96.01 Acute respiratory failure with hypoxia; N17.0 Acute kidney failure with tubular necrosis; N39.0 Urinary tract infection, site not specified; N18.4 Chronic kidney disease, stage 4 (severe); I95.1 Orthostatic hypotension; E11.22 Type 2 diabetes mellitus with diabetic chronic kidney disease; D63.1 Anemia in chronic kidney disease; Z20.822 Contact with and (suspected) exposure to COVID-19; E03.9 Hypothyroidism, unspecified; E83.52 Hypercalcemia; K59.00 Constipation, unspecified; I12.9 Hypertensive chronic kidney disease with stage 1 through stage 4 chronic kidney disease, or unspecified chronic kidney disease; Z63.4 Disappearance and death of family member; Z82.49 Family history of ischemic heart disease and other diseases of the circulatory system; Z88.8 Allergy status to other drugs, medicaments and biological substances
CPT/HCPCS: 36415; 70450; 70551; 71045; 76775; 80048; 80053; 80061; 81001; 82088; 82306; 82533; 82550; 82570; 82962; 83036; 83735; 83880; 83970; 84100; 84156; 84244; 84300; 84443; 84484; 84550; 85007; 85025; 85027; 87086; 87088; 87186; 87426; 93005; 93306; 94640; 96361; 96374; 97110; 97116; 97163; G0378; J0696; J1335; J1815; J2405

== ENCOUNTER 2023-01-16 21:07 | Emergency (ER) | payer OTHER, MEDICAID ==
[~2023-01-16] VITALS: Ht 160 cm; Wt 70.0 kg
[~2023-01-16 21:07] MED LIST: ALLO100T PO; ATO40T PO; ERGO1CAP23 PO; INSUINJ2 SC; LEVO125T7 PO; NIFE1TAB31 PO; OMEP-260 PO
[2023-01-16 22:02] LABS: Basophils # (auto) 0.3 10 ^3/uL (0-0.2); Eosinophils # (auto) 1.1 10 ^3/uL (0-0.8); Eosinophils % (auto) 11.5 % (0.0-7.0); Hematocrit 34.1 % (36.0-46.0); Hemoglobin 11.5 g/dL (12.2-16.2); Lymphocytes # (auto) 1.7 10 ^3/uL (0.4-5.4); Lymphocytes % (auto) 16.8 % (10.0-50.0); Mean Corpuscular Hemoglobin 30.2 pg (28.0-32.0); Mean Corpuscular Hgb Conc. 33.7 g/dL (32.0-36.0); Mean Corpuscular Volume 89.8 fL (80.0-100.0); Monocytes # (auto) 0.4 10 ^3/uL (0-1.3); Monocytes % (auto) 4.1 % (0.0-12.0); Neutrophils # (auto) 6.4 10 ^3/uL (1.6-8.6); Neutrophils % (auto) 64.6 % (37.0-80.0); Nucleated Red Blood Cells % 0.1 %; Red Cell Distribution Width 14.4 % (11.8-14.3); White Blood Cell 9.8 10^3/uL (4.4-10.8)
[2023-01-16 22:20] LABS: Albumin 2.1 g/dL (3.4-5.0); Calcium 8.8 mg/dL (8.5-10.1); Magnesium 2.5 mg/dL (1.6-2.6); Potassium 3.7 mmol/L (3.5-5.1)
[2023-01-16 22:25] LABS: Bilirubin, Total 0.2 mg/dL (0.2-1.0); Total Protein 6.1 g/dL (6.4-8.2)
[2023-01-16 22:38] LABS: INR 0.92 (0.9-1.15); Partial Thromboplastin Time 20.4 sec (24.6-33.4)
[2023-01-17] MEDS ORDERED: FUROSEMIDE 40 MG/4 ML VIAL IV ONE (06:00)
[2023-01-17] MEDS ORDERED: hydrALAZINE HCL 20 MG/ML VL IV ONE (07:00)
[2023-01-17 11:25] VITALS: BP 164/75
== END 2023-01-17 11:15 | disposition short-term general hospital (02) ==
LOC: EDBD 21:07 → ER 21:07
DX: E11.9 Type 2 diabetes mellitus without complications (principal); I10 Essential (primary) hypertension; I11.0 Hypertensive heart disease with heart failure; I50.9 Heart failure, unspecified; J90 Pleural effusion, not elsewhere classified; R60.1 Generalized edema; R79.0 Abnormal level of blood mineral
CPT/HCPCS: 36415; 71250; 74176; 80053; 83735; 83880; 84484; 85025; 85610; 85730; 93005; 96374; 96375; 99285; J0360; J1940

== ENCOUNTER 2023-10-27 21:21 | Emergency (ER) | payer MEDICAID, OTHER ==
[~2023-10-27] VITALS: Ht 152.4 cm; Wt 68.0 kg
[~2023-10-27 21:21] MED LIST changes: -OMEP-260 PO; +OMEP1CAP70 PO
[2023-10-27 21:51] VITALS: PULSE 81; RESP 23; TEMP 98.1; O2SAT 92
[2023-10-27 23:05] LABS: Anion Gap 6 (5-15); Carbon Dioxide 23 mmol/L (20-30); Chloride 104 mmol/L (98-107); Potassium 3.9 mmol/L (3.5-5.1); Sodium 133 mmol/L (136-145)
[2023-10-27 23:06] LABS: Calcium 9.1 mg/dL (8.7-10.4)
[2023-10-27 23:11] LABS: BUN/Creatinine Ratio 12.1 (10.0-20.0); Blood Urea Nitrogen 42 mg/dL (9-23); Glucose 189 mg/dL (74-106)
[2023-10-27 23:17] LABS: COVID19 ANTIGEN SOFIA FIA NEGATIVE (NEGATIVE)
[2023-10-27 23:20] LABS: Hemoglobin 9.6 g/dL (12.2-16.2); Lymphocytes # (auto) 0.8 10 ^3/uL (0.4-5.4); White Blood Cell 8.8 10^3/uL (4.4-10.8)
[2023-10-27 23:21] LABS: Basophils # (auto) 0.3 10 ^3/uL (0-0.2); Basophils % (auto) 3.8 % (0.0-2.0); Eosinophils # (auto) 0.6 10 ^3/uL (0-0.8); Eosinophils % (auto) 7.1 % (0.0-7.0); Hematocrit 29.2 % (36.0-46.0); Lymphocytes % (auto) 9.6 % (10.0-50.0); Mean Corpuscular Hemoglobin 29.3 pg (28.0-32.0); Mean Corpuscular Volume 88.9 fL (80.0-100.0); Monocytes # (auto) 0.4 10 ^3/uL (0-1.3); Monocytes % (auto) 4.6 % (0.0-12.0); Neutrophils # (auto) 6.6 10 ^3/uL (1.6-8.6); Neutrophils % (auto) 74.9 % (37.0-80.0); Red Blood Cells 3.29 10^6/uL (4.0-5.20); Red Cell Distribution Width 15.4 % (11.8-14.3)
[2023-10-28 03:00] VITALS: BP 147/57; PULSE 88; RESP 20; O2SAT 93
== END 2023-10-28 03:08 | disposition home or self-care (01) ==
LOC: ER 21:21 → EDBD 21:21 → ER 10-28 03:05
DX: J90 Pleural effusion, not elsewhere classified (principal); I11.0 Hypertensive heart disease with heart failure; I50.9 Heart failure, unspecified; R07.89 Other chest pain; E11.9 Type 2 diabetes mellitus without complications; Z79.4 Long term (current) use of insulin; Z79.899 Other long term (current) drug therapy; Z88.8 Allergy status to other drugs, medicaments and biological substances; Z20.822 Contact with and (suspected) exposure to COVID-19
CPT/HCPCS: 32554; 36415; 71045; 80048; 83880; 84484; 85025; 87426; 93005